=== PATIENT | female | born 1965 | race Caucasian/White ===

== ENCOUNTER → 2017-03-03 | Outpatient (CLI) | payer OTHER ==
--- NOTE | 2017-03-03 10:58 | US ---
EXAMINATION: Abdominal aortic ultrasound HISTORY: Screening, tobacco use COMPARISON: None TECHNIQUE: Grayscale and color Doppler images obtained of the abdominal aorta. FINDINGS/IMPRESSION: The proximal aorta measures 2.6 cm, mid aorta measures 2.4 cm, distal aorta princess sures 1.6 cm. The right common iliac diameter is 1.1 cm and the left common iliac diameter is 1.0 cm . Mild atheromatous disease without evidence of an abdominal aortic aneurysm.
== END ==
LOC: MW.US 09:19
DX: Z13.6 Encounter for screening for cardiovascular disorders (principal); Z87.891 Personal history of nicotine dependence; I71.4 Abdominal aortic aneurysm, without rupture
CPT/HCPCS: 76775; 76775-26

== ENCOUNTER 2017-04-15 07:35 | Day surgery (SDC) | payer OTHER ==
[~2017-04-15 07:35] MED LIST: Lactated Ringers 1,000 ML IV SCH
[2017-04-15] MEDS ORDERED: Propofol 200 MG/20 ML SDV ONE (07:48)
[2017-04-15] MEDS ORDERED: fentaNYL 100 MCG/2 ML SDV ONE (07:48)
[2017-04-15] MEDS ORDERED: Midazolam 1 MG/ML 2 ML SDV ONE (07:48)
--- NOTE | 2017-04-15 08:23 | PCM.PREANE ---
Preanesthetic Assessment - Anesthesia/Transfusion/Family Hx Anesthesia History: Prior Anesthesia Without Reaction Type of Anesthesia Reaction: Excessive Nausea/Vomiting (after BTL) Family History of Anesthesia Reaction: No Transfusion History: No Prior Transfusion(s) - Review of Systems General: No Symptoms Pulmonary: No Symptoms Cardiovascular: No Symptoms Gastrointestinal: No symptoms Neurological: No Symptoms Other: Reports: None - Physical Assessment NPO Status Date: 04/14/17 NPO Status Time: 22:00 O2 Sat by Pulse Oximetry: 99 Respiratory Rate: 16 Vital Signs: Last Vital Signs Temp 36.6 C 04/15/17 07:52 Pulse 71 04/15/17 07:52 Resp 16 04/15/17 07:52 BP 116/67 04/15/17 07:52 Pulse Ox 99 04/15/17 07:52 Height: 1.57 m Weight: 48.534 kg ASA Class: 2 Mental Status: Alert & Oriented x3 Airway Class: Mallampati = 1 Dentition: Reports: Dentures, Partial ROM/Head Extension: Full Lungs: Clear to auscultation, Normal respiratory effort Cardiovascular: Regular Rate, Regular Rhythm - Lab Values: Laboratory Last Values Urine HCG, Qual NEGATIVE (NEGATIVE) 04/15/17 07:37 - Allergies Allergies/Adverse Reactions: Allergies Allergy/AdvReac Type Severity Reaction Status Date / Time No Known Allergies Allergy Verified 10/29/15 05:18 - Anesthesia Plan Pre-Op Medication Ordered: None - Acknowledgements Anesthesia Type Planned: MAC Pt an Appropriate Candidate for the Planned Anesthesia: Yes Alternatives and Risks of Anesthesia Discussed w Pt/Guardian: Yes Pt/Guardian Understands and Agrees with Anesthesia Plan: Yes PreAnesthesia Questionnaire HEENT History: Other HEENT History: top denture bottom partial Cardiovascular History: Reports: None Respiratory History: Reports: Other (See Below) Other Respiratory History: hx of collapse lung Genitourinary History: Reports: None 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: , 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 Musculoskeletal History: Reports: Fracture Other Musculoskeletal History: hx fx hand Neurological History: Reports: None Psychiatric History: Reports: None Endocrine/Metabolic History: Reports: None Immunologic History: Reports: None Oncologic (Cancer) History: Reports: None Dermatologic History: Reports: None - Infectious Disease History Infectious Disease History: Reports: Chicken Pox - Past Surgical History Head Surgeries/Procedures: Reports: None HEENT Surgical History: Reports: Myringotomy w Tube(s) Respiratory Surgical History: Reports: Other (See Below) Other Respiratory Surgeries/Procedures: CTT insertion Female Surgical History: Reports: Breast Biopsy, Tubal Ligation Other Female Surgeries/Procedures: D&C following miscarriage Oncologic Surgical History: Reports: Biopsy of Breast Other Oncologic Surgeries/Procedures: Biopsy negative, fibrous breast tissue - SUBSTANCE USE Smoking Status *Q: Current Some Day Smoker Tobacco Use Within Last Twelve Months: Cigarettes Second Hand Smoke Exposure: No Recreational Drug Use History: No - HOME MEDS Home Medications: Home Meds Aspirin [[place] Aspirin] 81 mg PO DAILY 04/10/17 [History] Cholecalciferol (Vitamin D3) [Vitamin D3] 2,000 units PO DAILY 04/10/17 [History ] Simvastatin [Zocor] 0.5 tab PO DAILY 04/10/17 [History] - CURRENT (IN HOUSE) MEDS Current Meds: Current Medications Lactated Ringer's (Ringers, Lactated) 1,000 mls @ 125 mls/hr IV ASDIRECTED EDGARDO Last Admin: 04/15/17 07:53 Dose: 125 mls/hr Discontinued Medications Fentanyl (Sublimaze) Confirm Administered Dose 100 mcg .ROUTE .STK-MED ONE Stop: 04/15/17 07:49 Midazolam HCl (Versed 1 Mg/Ml) Confirm Administered Dose 2 mg .ROUTE .STK-MED ONE Stop: 04/15/17 07:49 Propofol (Diprivan 20 Ml) Confirm Administered Dose 200 mg .ROUTE .STK-MED ONE Stop: 04/15/17 07:49
--- NOTE | 2017-04-15 09:02 | PCM.OPNOTE ---
- General Post-Op/Procedure Note Date of Surgery/Procedure: 04/15/17 Operative Procedure(s): colonoscopy w bx Findings: see dict [id number] Pre Op Diagnosis: scrn colonoscopy Post-Op Diagnosis: colon polyp Anesthesia Technique: Moderate sedation Primary Surgeon: Geovanny Rojo Pathology: at 65 cm when scope went in, a 5 mm sessile polyp, removed by bx Complications: None Condition: Good
--- NOTE | 2017-04-15 09:19 | PCM48HPAN ---
Post Anesthesia Note - EVALUATION WITHIN 48HRS OF ANESTHETIC Vital Signs in Normal Range: Yes Patient Participated in Evaluation: Yes Respiratory Function Stable: Yes Airway Patent: Yes Cardiovascular Function Stable: Yes Hydration Status Stable: Yes Pain Control Satisfactory: Yes Nausea and Vomiting Control Satisfactory: Yes Mental Status Recovered: Yes
--- NOTE | 2017-04-15 09:19 | PCM.POSTAN ---
POST ANESTHESIA ASSESSMENT - MENTAL STATUS Mental Status: alert, oriented - RESPIRATORY Respiratory Status: respiratory rate WNL, airway patent, O2 saturation stable - CARDIOVASCULAR CV Status: pulse rate WNL, blood pressure stable - GASTROINTESTINAL GI Status: no symptoms - POST OP HYDRATION Hydration Status: adequate & stable
[2017-04-15 09:23] VITALS: BP 100/67
--- NOTE | 2017-04-15 11:43 | OR ---
SURGEON: Geovanny Rojo MD DATE OF PROCEDURE: 04/15/2017 PREOPERATIVE DIAGNOSIS: Screening colonoscopy. POSTOPERATIVE DIAGNOSIS: Colon polyp. COMPLICATIONS: None. PROCEDURE PERFORMED: Colonoscopy with biopsy. FINDINGS: 1. The patient is easily sedated with SHACTOR and Diprivan. The patient is soundly snoring. 2. The patient's bowel prep is left to be desirable with one moderate-sized stool ball, but otherwise a little bit moderate amount of semi-formed liquid stool and this is a compromised study because of the bowel prep. Cecum indicated by ileocecal fold, one-to-one indentation, and light emittance. Appendiceal orifice mucosa examined upon scope pulling out with intermittent irrigation and the patient had a 5 mm sessile polyp, when the scope go in at 65 distance and around 35 when the scope come out 5 mm sessile polyp, and probably a bit distal to the splenic flexure removed with biopsy forceps x2, and otherwise the patient does not have diverticulosis, mass, growth, inflammation, stricture, AV malformation, ulceration, bleeding, and the patient has minimal internal hemorrhoids, no external hemorrhoids. The patient would benefit from repeat colonoscopy 5 years from today or if clinically indicated otherwise or if the polyp pathology indicated otherwise. DESCRIPTION OF PROCEDURE: The patient was taken to the endoscopy room. A time out was called, patient identified, and procedure identified. Diprivan was then administrated. Patient went from awake to sleep, hearing doctor talking or door closing is normal. Perineum inspection and digital examination were then performed. A well- lubricated colonoscope was gently inserted through the rectum, advanced past the rectosigmoid junction, the descending colon, splenic flexure, transverse colon, hepatic flexure, ascending colon, arrived to the cecum. Cecum was identified as dictated in the finding. Then the scope was carefully withdrawn while attention was paid to the mucosal surface for any abnormality. Air will be sucked out during the scope withdrawal. At the rectum, retroflexed to examine any rectal diseases, fistula or hemorrhoids. During mucosal examination, polyp was noted; picture taken and biopsy performed. Patient tolerated procedure well. There were no intraoperative complications, and Dr. Rojo was present throughout the whole procedure. RAMBO / CHEN /[id number] ZACHARY
== END 2017-04-15 09:50 | disposition home or self-care (01) ==
LOC: MW.SDS 07:35
PROVIDERS: ATTEND Surgery
DX: Z12.11 Encounter for screening for malignant neoplasm of colon (principal); D12.4 Benign neoplasm of descending colon; R06.83 Snoring; F17.210 Nicotine dependence, cigarettes, uncomplicated; E78.00 Pure hypercholesterolemia, unspecified; G43.909 Migraine, unspecified, not intractable, without status migrainosus; Z79.82 Long term (current) use of aspirin; Z79.899 Other long term (current) drug therapy; Z98.51 Tubal ligation status; Z98.890 Other specified postprocedural states
CPT/HCPCS: 45380; 81025; 88305; J2250; J3010; J7120; J2704

== ENCOUNTER 2017-11-10 23:18 | Emergency (ER) | payer OTHER ==
[2017-11-10] MEDS ORDERED: Albuterol/Ipratropium 3.0-0.5 MG/3 ML Neb Soln NEB ONE (23:29)
--- NOTE | 2017-11-10 23:31 | EDM.PDOC ---
ED HPI GENERAL MEDICAL PROBLEM - General Chief Complaint: Respiratory Problem Stated Complaint: UNK Time Seen by Provider: 11/10/17 23:29 - History of Present Illness INITIAL COMMENTS - FREE TEXT/NARRATIVE: HISTORY AND PHYSICAL: History of present illness: Patient is 52-year-old white female presents with concern of cough fever and chills over the last 10 days she's had some shortness of breath she is a smoker she denies influenza immunization. No vomiting diarrhea or other complaints Review of systems: As per history of present illness and below otherwise all systems reviewed and negative. Past medical history: As per history of present illness and as reviewed below otherwise noncontributory. Surgical history: As per history of present illness and as reviewed below otherwise noncontributory. Social history: No reported history of drug or alcohol abuse. Family history: As per history of present illness and as reviewed below otherwise noncontributory. Physical exam: HEENT: Atraumatic, normocephalic, pupils reactive, negative for conjunctival pallor or scleral icterus, mucous membranes moist, throat clear, neck supple, nontender, trachea midline. Lungs: Slightly coarse with her next door wheezing, breath sounds equal bilaterally, chest nontender. Heart: S1S2, regular, negative for clicks, rubs, or JVD. Abdomen: Soft, nondistended, nontender. Negative for masses or hepatosplenomegaly. Negative for costovertebral tenderness. Pelvis: Stable nontender. Genitourinary: Deferred. Rectal: Deferred. Extremities: Atraumatic, negative for cords or calf pain. Neurovascular unremarkable. Neuro: Awake, alert, oriented. Cranial nerves II through XII unremarkable. Cerebellum unremarkable. Motor and sensory unremarkable throughout. Exam nonfocal. Diagnostics: CBC CMP influenza screen chest x-ray Therapeutics: Albuterol ipratropium nebulizer Impression: #1 pneumonitis Definitive disposition and diagnosis as appropriate pending reevaluation and review of above. - Related Data Allergies Allergy/AdvReac Type Severity Reaction Status Date / Time No Known Allergies Allergy Verified 11/10/17 23:21 Home Meds: Home Meds Aspirin [[employer] Aspirin] 81 mg PO DAILY 04/10/17 [History] Cholecalciferol (Vitamin D3) [Vitamin D3] 2,000 units PO DAILY 04/10/17 [History ] Simvastatin [Zocor] 0.5 tab PO DAILY 04/10/17 [History] Past Medical History HEENT History: Other HEENT History: top denture bottom partial Cardiovascular History: Reports: None Respiratory History: Reports: Other (See Below) Other Respiratory History: hx of collapse lung Genitourinary History: Reports: None 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: , 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 Musculoskeletal History: Reports: Fracture Other Musculoskeletal History: hx fx hand Neurological History: Reports: None Psychiatric History: Reports: None Endocrine/Metabolic History: Reports: None Immunologic History: Reports: None Oncologic (Cancer) History: Reports: None Dermatologic History: Reports: None - Infectious Disease History Infectious Disease History: Reports: Chicken Pox - Past Surgical History Head Surgeries/Procedures: Reports: None HEENT Surgical History: Reports: Myringotomy w Tube(s) Respiratory Surgical History: Reports: Other (See Below) Other Respiratory Surgeries/Procedures: CTT insertion Female Surgical History: Reports: Breast Biopsy, Tubal Ligation Other Female Surgeries/Procedures: D&C following miscarriage Oncologic Surgical History: Reports: Biopsy of Breast Other Oncologic Surgeries/Procedures: Biopsy negative, fibrous breast tissue Social & Family History - Family History Cardiac: Reports: CAD Musculoskeletal: Reports: Arthritis Endocrine/Metabolic: Reports: Diabetes, type II - Tobacco Use Smoking Status *Q: Current Some Day Smoker Years of Tobacco use: 21 Packs/Tins Daily: 0 Used Tobacco, but Quit: Yes Month Tobacco Last Used: october 2015 Second Hand Smoke Exposure: No - Recreational Drug Use Recreational Drug Use: No ED ROS GENERAL - Review of Systems Review Of Systems: ROS reveals no pertinent complaints other than HPI. ED EXAM, GENERAL - Physical Exam Exam: See Below (See dictation) Course - Vital Signs Last Recorded V/S: Last Vital Signs Temp 36.1 C 11/10/17 23:23 Pulse 83 11/10/17 23:23 Resp 16 11/10/17 23:23 BP 122/99 H 11/10/17 23:23 Pulse Ox 93 L 11/10/17 23:23 - Orders/Labs/Meds Orders: Active Orders 24 hr Category Date Time Status RT Aerosol Therapy [RC] ASDIRECTED Care 11/10/17 23:29 Active Chest 2V [CR] Stat Exams 11/10/17 23:22 Ordered COMPREHENSIVE METABOLIC PN,CMP [CHEM] Stat Lab 11/10/17 23:29 Ordered Labs: Laboratory Tests 11/10/17 Range/Units 23:43 WBC 17.67 H (4.0-11.0) K/uL RBC 4.10 L (4.30-5.90) M/uL Hgb 12.0 (12.0-16.0) g/dL Hct 35.4 L (36.0-46.0) % MCV 86.3 (80.0-98.0) fL MCH 29.3 (27.0-32.0) pg MCHC 33.9 (31.0-37.0) g/dL RDW Std Deviation 38.4 (28.0-62.0) fl RDW Coeff of Martin 12 (11.0-15.0) % Plt Count 474 H (150-400) K/uL MPV 8.90 (7.40-12.00) fL Neut % (Auto) 81.1 H (48.0-80.0) % Lymph % (Auto) 11.7 L (16.0-40.0) % [place] % (Auto) 6.6 (0.0-15.0) % Eos % (Auto) 0.5 (0.0-7.0) % Baso % (Auto) 0.1 (0.0-1.5) % Neut # (Auto) 14.3 H (1.4-5.7) K/uL Lymph # (Auto) 2.1 (0.6-2.4) K/uL [place] # (Auto) 1.2 H (0.0-0.8) K/uL Eos # (Auto) 0.1 (0.0-0.7) K/uL Baso # (Auto) 0.0 (0.0-0.1) K/uL Nucleated RBC % 0.0 /100WBC Nucleated RBCs # 0 K/uL Meds: Medications Discontinued Medications Generic Name Dose Route Start Last Admin Trade Name Freq PRN Reason Stop Dose Admin Albuterol/Ipratropium 3 ml 11/10/17 23:29 11/10/17 23:43 Duoneb 3.0-0.5 Mg/3 Ml NEB 11/10/17 23:30 3 ml ONETIME ONE Administration Departure - Departure Time of Disposition: 23:55 Disposition: Home, Self-Care 01 Condition: Good Clinical Impression: Pneumonitis - Discharge Information Forms: ED Department Discharge Additional Instructions: The following information is given to patients seen in the emergency department who are being discharged to home. This information is to outline your options for follow-up care. We provide all patients seen in our emergency department with a follow-up referral. The need for follow-up, as well as the timing and circumstances, are variable depending upon the specifics of your emergency department visit. If you don't have a primary care physician on staff, we will provide you with a referral. We always advise you to contact your personal physician following an emergency department visit to inform them of the circumstance of the visit and for follow-up with them and/or the need for any referrals to a consulting specialist. The emergency department will also refer you to a specialist when appropriate. This referral assures that you have the opportunity for followup care with a specialist. All of these measure are taken in an effort to provide you with optimal care, which includes your followup. Under all circumstances we always encourage you to contact your private physician who remains a resource for coordinating your care. When calling for followup care, please make the office aware that this follow-up is from your recent emergency room visit. If for any reason you are refused follow-up, please contact the [facility] emergency department at and asked to speak to the emergency department charge nurse. Albuterol Augmentin as prescribed stop smoking follow-up primary medical doctor 1-2 days return as needed as discussed - My Orders Last 24 Hours: My Active Orders 11/10/17 23:22 Chest 2V [CR] Stat 11/10/17 23:29 RT Aerosol Therapy [RC] ASDIRECTED COMPREHENSIVE METABOLIC PN,CMP [CHEM] Stat - Assessment/Plan Last 24 Hours: My Active Orders 11/10/17 23:22 Chest 2V [CR] Stat 11/10/17 23:29 RT Aerosol Therapy [RC] ASDIRECTED COMPREHENSIVE METABOLIC PN,CMP [CHEM] Stat
[2017-11-11 00:10] VITALS: BP 112/50
[2017-11-11 00:10] LABS: CHLORIDE,CL 106 mmol/L (98-110); SODIUM,NA 139 mmol/L (136-146)
--- NOTE | 2017-11-11 14:50 | CR ---
EXAM DATE: 11/10/17 PATIENT'S AGE: 52 Patient: BRAD HE Facility: [place], [place] Site . Site : [id number] Study: XRay Chest [id number]/22/2018 11:40:29 PM Ordering Physician: Doctor Salinas Final Report: INDICATION: Cough for 4 days, fever on and off for 12 days. TECHNIQUE: Chest radiograph 2 views COMPARISON: 10/29/2015 FINDINGS: Mediastinum: Airspace consolidation is present in the anterior lingula, partially obscuring the left cardiac border. The mediastinum is normal in appearance. Lungs: Bilateral pulmonary hyperinflation and lucency noted, suggestive of moderate pulmonary emphysema. No sign of pleural effusion seen. No pneumothorax is identified. Bones and soft tissue: Unremarkable for age. IMPRESSIONS: 1. Airspace consolidation is present in the anterior lingula, partially obscuring the left cardiac border. Findings are suspicious for pneumonia and radiographic followup is recommended to document complete resolution. 2. Bilateral pulmonary hyperinflation and lucency noted, suggestive of moderate pulmonary emphysema. Dictated by Santiago Price MD @ 11/10/2017 11:43:33 PM Dictated by: Santiago Price MD @ 11/10/2017 23:43:35 (Electronic Signature) Report Signed by Proxy. ZACHARY
== END 2017-11-11 00:05 | disposition home or self-care (01) ==
LOC: MW.ED 23:18
DX: J18.9 Pneumonia, unspecified organism (principal); F17.210 Nicotine dependence, cigarettes, uncomplicated; Z79.899 Other long term (current) drug therapy
CPT/HCPCS: 36415; 71046; 71046-26; 80053; 85025; 87804; 94640; 99283; 99284-25